=== PATIENT | female | born 1990 | race Caucasian/White ===

== ENCOUNTER 2021-02-09 08:42 | Emergency (ER) | payer OTHER ==
[~2021-02-09] VITALS: Ht 170.2 cm; Wt 51.0 kg
--- NOTE | 2021-02-09 09:19 | EKG ---
[address] [address] Test Date: 2021-02-09 Test Time: 08:52:29 Pat Name: YISEL REYES Department: Room: Gender: F [employer] Driver: XEN[place] : 1990 Requested By: RICKIE OLVERA Order Number: [id number] Reading MD: Sampson Storey Measurements Intervals [place] Rate: 71 P: 62 CO: 152 QRS: 55 QRSD: 72 T: 48 QT: 372 QTc: 404 Interpretive Statements SINUS RHYTHM NORMAL ECG RI6.02 No previous ECG available for comparison Electronically Signed On 02-10-2021 13:11:24 CDT by Sampson Storey
--- NOTE | 2021-02-09 09:26 | RAD ---
INDICATION: Reason: chest pain / Spl. Instructions: / History: COMPARISON: None. FINDINGS: Single view of chest obtained. Cardiomediastinal silhouette is unremarkable. No definite focal airspace consolidation or edema. IMPRESSION: * No focal airspace consolidation or edema. Electronically signed by: Constantine Manuel MD (02/09/2021 9:24 AM) [id number]
[2021-02-09 09:36] LABS: BASO # 0.1 x10^3/uL (0.0-0.2); BASO % 1 % (0-3); EOS # 0.1 x10^3/uL (0.0-0.7); EOS % 1 % (0-3); HEMATOCRIT 41.7 % (36.0-47.0); LYMPH % 20 % (24-48); MEAN CORPUSCULAR HEMOGLOBIN 31 pg (25-35); MEAN CORPUSCULAR HGB CONC 34 g/dL (31-37); MEAN CORPUSCULAR VOLUME 92 fL (79-100); MONO # 0.7 x10^3/uL (0.0-1.1); MONO % 7 % (0-9); NEUT # 7.2 x10^3uL (1.8-7.7); NEUT % 71 % (31-73); PLATELET COUNT 212 x10^3/uL (140-400); RED BLOOD COUNT 4.53 x10^6/uL (3.50-5.40); RED CELL DISTRIBUTION WIDTH 13.7 % (11.5-14.5); WHITE BLOOD COUNT 10.1 x10^3/uL (4.0-11.0)
[2021-02-09 09:45] LABS: CREATININE 0.6 mg/dL (0.6-1.0); GFR 115.9; POTASSIUM 3.6 mmol/L (3.5-5.1)
--- NOTE | 2021-02-09 09:50 | PHYS DOC ---
Past History Additional Past Medical Histor: Peptic ulcers, tricuspid valve leak. (ADOLFO JOHNSON APRN) Past Surgical History: Appendectomy (ADOLFO JOHNSON APRN) Alcohol Use: None (ADOLFO JOHNSON APRN) General Adult EDM: Chief Complaint: CHEST PAIN HPI: HPI: Patient is a 30-year-old female who presents with epigastric pain. Patient states "on Tuesday I was having vomiting and diarrhea, which has stopped now". "The pain feels like indigestion and I cannot quit burping". "This morning though the pain went into my left upper arm and my left arm felt weak". Patient states that she has been taking Carafate for the ulcer. Denies shortness of breath or recent illness. Patient's only health history is ulcer. (ADOLFO JOHNSON APRN) Review of Systems: Review of Systems: Constitutional: Denies fever or chills Eyes: Denies change in visual acuity HENT: Denies nasal congestion or sore throat Respiratory: Denies cough or shortness of breath Cardiovascular: Denies chest pain or edema GI: Reports epigastric abdominal pain, nausea. : Denies dysuria Musculoskeletal: Denies back pain or joint pain Integument: Denies rash Neurologic: Denies headache, focal weakness or sensory changes Endocrine: Denies polyuria or polydipsia Lymphatic: Denies swollen glands Psychiatric: Denies depression or anxiety (ADOLFO JOHNSON APRN) Allergies: Allergies: Allergies Coded Allergies Type Severity Reaction Last Updated Verified aspirin Allergy Mild 02/09/21 Yes codeine Allergy Unknown 02/09/21 Yes (ADOLFO JOHNSON APRN) Physical Exam: PE: Constitutional: Well developed, well nourished, no acute distress, non-toxic appearance. [] HENT: Normocephalic, atraumatic, bilateral external ears normal, oropharynx moist, no oral exudates, nose normal. [] Eyes: PERRLA, EOMI, conjunctiva normal, no discharge. [] Neck: Normal range of motion, no tenderness, supple, no stridor. [] Cardiovascular:Heart rate regular rhythm, no murmur [] Lungs & Thorax: Bilateral breath sounds clear to auscultation [] Abdomen: Bowel sounds normal, soft, no tenderness, no masses, no pulsatile masses. [] Skin: Warm, dry, no erythema, no rash. [] Back: No tenderness, no CVA tenderness. [] Extremities: No tenderness, no cyanosis, no clubbing, ROM intact, no edema. [] Neurologic: Alert and oriented X 3, normal motor function, normal sensory function, no focal deficits noted. [] Psychologic: Affect normal, judgement normal, mood normal. [] (ADOLFO JOHNSON APRN) Current Patient Data: Labs: Laboratory Tests Test 02/09/21 09:20 White Blood Count 10.1 x10^3/uL (4.0-11.0) Red Blood Count 4.53 x10^6/uL (3.50-5.40) Hemoglobin 14.0 g/dL (12.0-15.5) Hematocrit 41.7 % (36.0-47.0) Mean Corpuscular Volume 92 fL (79-100) Mean Corpuscular Hemoglobin 31 pg (25-35) Mean Corpuscular Hemoglobin Concent 34 g/dL (31-37) Red Cell Distribution Width 13.7 % (11.5-14.5) Platelet Count 212 x10^3/uL (140-400) Neutrophils (%) (Auto) 71 % (31-73) Lymphocytes (%) (Auto) 20 % (24-48) L Monocytes (%) (Auto) 7 % (0-9) Eosinophils (%) (Auto) 1 % (0-3) Basophils (%) (Auto) 1 % (0-3) Neutrophils # (Auto) 7.2 x10^3uL (1.8-7.7) Lymphocytes # (Auto) 2.0 x10^3/uL (1.0-4.8) Monocytes # (Auto) 0.7 x10^3/uL (0.0-1.1) Eosinophils # (Auto) 0.1 x10^3/uL (0.0-0.7) Basophils # (Auto) 0.1 x10^3/uL (0.0-0.2) Vital Signs: Vital Signs Date Time Temp Pulse Resp B/P (MAP) Pulse Ox O2 Delivery O2 Flow Rate FiO2 02/09/21 08:58 98.2 81 12 120/67 (84) 99 Room Air (ADOLFO JOHNSON APRN) EKG: EKG: [] (ADOLFO JOHNSON APRN) Radiology/Procedures: Radiology/Procedures: []INDICATION: Reason: chest pain / Spl. Instructions: / History: COMPARISON: None. FINDINGS: Single view of chest obtained. Cardiomediastinal silhouette is unremarkable. No definite focal airspace consolidation or edema. IMPRESSION: * No focal airspace consolidation or edema. Electronically signed by: Constantine Manuel MD (02/09/2021 9:24 AM) [id number] (ADOLFO JOHNSON APRN) Heart Score: C/O Chest Pain: No Risk Factors: Risk Factors: DM, Current or recent (<one month) smoker, HTN, HLP, family history of CAD, obesity. Risk Scores: Score 0 - 3: 2.5% MACE over next 6 weeks - Discharge Home Score 4 - 6: 20.3% MACE over next 6 weeks - Admit for Clinical Observation Score 7 - 10: 72.7% MACE over next 6 weeks - Early Invasive Strategies (ADOLFO JOHNSON APRN) Course & Med Decision Making: Course & Med Decision Making Pertinent Labs and Imaging studies reviewed. (See chart for details) [] 30-year-old female presents with epigastric pain. Patient reports pain started on Tuesday along with vomiting and diarrhea. Patient denies vomiting or diarrhea at this time. Patient states that she still has some nausea. Patient takes Carafate for an ulcer she was diagnosed with 7 years ago. Patient describes pain as indigestion and states that she cannot quit burping. Zofran and GI cocktail given help with symptoms. Chest x-ray unremarkable. All labs unremarkable. Troponin is negative. Discussed results with patient. Advised patient to call her PCP and make a follow-up appointment to see GI again. Patient most likely needs to have another EGD. Symptoms appear to be related to her ulcer. Sending patient home with Zofran. Patient can buy PPI [id number] to take until she is able to follow-up with GI. Patient is appreciative and okay with discharge plan. (ADOLFO JOHNSON APRN) Course & Med Decision Making I was the Attending physician on the above date of service of this patient. This patient was evaluated, examined, treated, and dispositioned from the emergency department by the mid-level practitioner. Although I was working at the time , no assistance was requested. Electronically signed, Rickie Olvera DO (RICKIE OLVERA DO) Priya Disclaimer: Priya Disclaimer: This electronic medical record was generated, in whole or in part, using a voice recognition dictation system. (ADOLFO JOHNSON APRN) Departure Departure: Impression: Primary Impression: Epigastric abdominal pain Additional Impression: Ulcer Disposition: HOME / SELF CARE / HOMELESS Condition: STABLE Referrals: PCP,UNKNOWN (PCP) Patient Instructions: Diet for Peptic Ulcer Disease, Peptic Ulcer Disease, Iyfg-ob-[id number] Additional Instructions: You were seen in the emergency room for epigastric pain, nausea. All of your labs were unremarkable. Your symptoms are most likely from your ulcer. It is a good idea to follow-up with your PCP and get a referral for GI to have another EGD. I am also sending home with Zofran for nausea. Please get Nexium or omeprazole from the pharmacy to help with symptoms until you can follow-up with your PCP. Return to the emergency room if you have worsening symptoms or concerns. EMERGENCY DEPARTMENT GENERAL DISCHARGE INSTRUCTIONS Thank you for coming to [facility] (ED) today and trusting us with you care. We trust that you had a positivie experience in our Emergency Department. If you wish to speak to the department management, you may call the director at [phone]. YOUR FOLLOW UP INSTRUCTIONS ARE FOLLOWS: 1. Do you have a private Doctor? If you do not have a private doctor, please ask for a resource list of physicians or clinics that may be able to assist you with follow up care. 2. The Emergency Physician has interpreted your x-rays. The X-Ray specialist will also review them. If there is a change in the findings, you will be notified in 48 hours when at all possible. 3. A lab test or culture has been done, your results will be reviewed and you will be notified if you need a change in treatment. ADDITIONAL INSTRUCTIONS AND INFORMATION: 1. Your care today has been supervised by a physician who is specially trained in emergency care. Many problems require more than one evaluation for a complete diagnosis and treatment. We recommend that you schedule your follow up appointment as recommended to ensure complete treatment of you illness or injury. If you are unable to obtain follow up care and continue to have a problem, or if your condition worsens, we recommend that you return to the ED. 2. We are not able to safely determine your condition over the phone nor are we able to give sound medical advice over the phone. For these safety reasons, if you call for medical advice we will ask you to come to the ED for further evaluation. 3. If you have any questions regarding these discharge instructions please call the ED at [phone]. SAFETY INFORMATION: In the interest of safety, wellness, and injury prevention; we encourage you to wear your sealbelt, if you smoke; quite smoking, and we encourage family to use a protective helmet for bicycling and other sporting events that present an increased risk for head injury. IF YOUR SYMPTOMS WORSEN OR NEW SYMPTOMS DEVELOP, OR YOU HAVE CONCERNS ABOUT YOUR CONDITION; OR IF YOUR CONDITION WORSENS WHILE YOU ARE WAITING FOR YOUR FOLLOW UP APPOINTMENT; EITHER CONTACT YOUR PRIMARY CARE DOCTOR, THE PHYSICIAN WHOSE NAME AND NUMBER YOU WERE GIVEN, OR RETURN TO THE ED IMMEDIATELY. Scripts Ondansetron Hcl (ZOFRAN) 4 Mg Tablet 4 MG PO TID PRN PRN for NAUSEA, #9 TAB Prov: ADOLFO JOHNSON APRN 02/09/21 ADOLFO JOHNSON APRN Feb 09, 2021 09:50 RICKIE OLVERA DO Feb 10, 2021 06:23
[2021-02-09] MEDS ORDERED: LIDO:MAALOX 1:1 20 ML SINGLE DOSE. PO ONE (10:00)
[2021-02-09] MEDS ORDERED: ONDANSETRON PF 4 MG/2 ML VIAL. IVP ONE (10:00)
[2021-02-09] MEDS ORDERED: ONDANSETRON ODT 4 MG TAB.RAPDIS PO ONE (10:30)
[2021-02-09] MEDS ORDERED: ONDA4TAB7 PO (10:32)
[2021-02-09 10:35] VITALS: BP 117/63
== END 2021-02-09 10:50 | disposition home or self-care (01) ==
LOC: EDBD 08:42 → ER 08:42
DX: L98.499 Non-pressure chronic ulcer of skin of other sites with unspecified severity (principal); R10.13 Epigastric pain; R11.2 Nausea with vomiting, unspecified; R19.7 Diarrhea, unspecified; Z87.11 Personal history of peptic ulcer disease; Z90.89 Acquired absence of other organs; Z88.5 Allergy status to narcotic agent; Z88.6 Allergy status to analgesic agent
CPT/HCPCS: 36415; 71045; 80048; 84484; 85025; 93005; 99285; Q0162

== ENCOUNTER 2021-09-25 12:48 | Emergency (ER) | payer OTHER ==
[~2021-09-25] VITALS: Ht 170.2 cm; Wt 58.6 kg
[~2021-09-25 12:48] MED LIST: ONDA4TAB7 PO
[2021-09-25 12:57] VITALS: BP 117/67
--- NOTE | 2021-09-25 13:22 | RAD ---
Exam Date: 09/25/2021 1:[address] HEAD/BRAIN WO Indication: Reason: headache, rt pupil larger, "looking through a fishbowl", x 1 day / Spl. Instructi ons: / History: . TECHNIQUE: Head CT was performed without intravenous contrast. One or more of the following dose re duction techniques were utilized: *Automated exposure control (AEC) *Adjustment of mA and/or kV according to patient size *Use of iterative reconstruction technique *CT scan done according to ALARA, or ALARA/IMAGE GENTLY FINDINGS: The ventricles and sulci are normal for the patient's stated age. There is no evidence of acute int racranial hemorrhage, extra-axial collection, mass effect, midline shift, or acute territorial infarc t. No lesion of the skull base or the calvarium is seen. The visualized paranasal sinuses, mastoid ai r cells and orbits are normal in appearance. IMPRESSION: No evidence for acute intracranial abnormality. Electronically signed by: Barak Martinez MD (09/25/2021 1:19 PM) [id number]
--- NOTE | 2021-09-25 13:40 | PHYS DOC ---
Past History Additional Past Medical Histor: Peptic ulcers, tricuspid valve leak. Past Surgical History: Appendectomy Alcohol Use: None General Adult EDM: Chief Complaint: VISION PROBLEM HPI: HPI: Patient is a 31-year-old female who presents with blurry vision and unequal pupil size. Patient states she is woke up this morning and things seem to be a little fuzzy when she looked out of her right eye. She looked in the mirror and realized that her pupil on the right side was larger than the left, this is new for her. This only started this morning upon awakening. She describes the periphery of her vision in the right eye is being fuzzy both medially and laterally with intermittent black spot in the center. She has not any history of trauma. She denies any exposure to chemicals or new medications. No fever or headache, no trauma. Review of Systems: Review of Systems: Constitutional: Denies fever Eyes: Reports change in visual acuity of right eye, no eye pain HENT: Denies sore throat Respiratory: Denies shortness of breath Cardiovascular: Denies chest pain GI: Denies abd pain : Denies dysuria Musculoskeletal: Denies back or extremity injury Integument: Denies rash or skin lesions Neurologic: Denies headache, focal weakness or sensory changes All other systems were reviewed and found to be within normal limits, except as documented in this note. Allergies: Allergies: Allergies Coded Allergies Type Severity Reaction Last Updated Verified aspirin Allergy Mild 02/09/21 Yes codeine Allergy Unknown 09/25/21 Yes Physical Exam: PE: Constitutional: Well developed, well nourished, no acute distress, non-toxic appearance. HENT: Normocephalic, atraumatic, bilateral external ears normal, mucosa moist, nose normal. Eyes: EOMI, conjunctiva normal, no discharge. Visual acuity is 20/25 in each eye. Right pupil is 4 to 5 mm in size whereas the left pupil is 3. Both are equally reactive. No evidence of foreign body. Neck: Normal range of motion, supple, no stridor, no meningeal signs. Cardiovascular: Regular rate and rhythm Lungs & Thorax: Bilateral breath sounds clear to auscultation Abdomen: Soft, no tenderness or obvious masses Skin: Warm, dry, no erythema, no rash. Extremities: No tenderness, no cyanosis, no clubbing, ROM intact, no edema. Neurologic: Alert and oriented, normal motor function, normal sensory function, no focal deficits noted. Psychologic: Affect normal, judgement normal, mood normal. Current Patient Data: Vital Signs: Vital Signs Date Time Temp Pulse Resp B/P (MAP) Pulse Ox O2 Delivery O2 Flow Rate FiO2 09/25/21 12:57 97.8 80 18 117/67 (84) 99 EKG: EKG: [] Radiology/Procedures: Radiology/Procedures: [] Impressions: PATIENT: YISEL REYES ACCOUNT: [id number] : 1990 LOCATION: ER AGE: 31 SEX: F EXAM STATUS: REG ER ORD. PHYSICIAN: DEMETRIS MEYER MD REASON: headache, rt pupil larger, "looking through a fishbowl", x 1 day PROCEDURE: CT HEAD WO CONTRAST Exam Date: 09/25/2021 1:[address] HEAD/BRAIN WO Indication: Reason: headache, rt pupil larger, "looking through a fishbowl", x 1 day / Spl. Instructions: / History: . TECHNIQUE: Head CT was performed without intravenous contrast. One or more of the following dose reduction techniques were utilized: *Automated exposure control (AEC) *Adjustment of mA and/or kV according to patient size *Use of iterative reconstruction technique *CT scan done according to ALARA, or ALARA/IMAGE GENTLY FINDINGS: The ventricles and sulci are normal for the patient's stated age. There is no evidence of acute intracranial hemorrhage, extra-axial collection, mass effect, midline shift, or acute territorial infarct. No lesion of the skull base or the calvarium is seen. The visualized paranasal sinuses, mastoid air cells and orbits are normal in appearance. IMPRESSION: No evidence for acute intracranial abnormality. Electronically signed by: Kit Martinez MD (09/25/2021 1:19 PM) [id number] DICTATED AND SIGNED BY: KIT MARTINEZ MD DATE: 09/25/21 1318 CC: PCP,UNKNOWN; DEMETRIS MEYER MD ~ Heart Score: C/O Chest Pain: No Risk Factors: Risk Factors: DM, Current or recent (<one month) smoker, HTN, HLP, family history of CAD, obesity. Risk Scores: Score 0 - 3: 2.5% MACE over next 6 weeks - Discharge Home Score 4 - 6: 20.3% MACE over next 6 weeks - Admit for Clinical Observation Score 7 - 10: 72.7% MACE over next 6 weeks - Early Invasive Strategies Course & Med Decision Making: Course & Med Decision Making Pertinent Labs and Imaging studies reviewed. (See chart for details) [] Is a 31-year-old female presents with Juliet Joe which is acute in onset. She also complains of some blurry vision though her visual acuity is the same in both eyes. CT scan of the head is negative. At this point I have spoke with an cutter v groove at [facility]. Patient be sent there for further evaluation, she will be able to be seen this afternoon. Priya Disclaimer: Priya Disclaimer: This electronic medical record was generated, in whole or in part, using a voice recognition dictation system. Departure Departure: Impression: Primary Impression: Anisocoria Additional Impression: Blurry vision, right eye Disposition: HOME / SELF CARE / HOMELESS Condition: STABLE Referrals: PCP,UNKNOWN (PCP) Patient Instructions: Eye - Blurred Vision DEMETRIS MEYER MD Sep 25, 2021 13:40
== END 2021-09-25 13:45 | disposition home or self-care (01) ==
LOC: ER 12:48
DX: H57.02 Anisocoria (principal); H53.8 Other visual disturbances; Z88.6 Allergy status to analgesic agent; Z88.5 Allergy status to narcotic agent
CPT/HCPCS: 70450; 99284